=== PATIENT | male | born 1990 | race African-American/Black ===

== ENCOUNTER 2019-09-09 10:41 | Emergency (ER) | payer SELFPAY ==
--- NOTE | 2019-09-09 10:57 | ER Document Report ---
ED Medical Screen (RME) - General Chief Complaint: Abdominal Pain Stated Complaint: ABDOMINAL CRAMPING Time Seen by Provider: 09/09/19 10:52 Notes: Patient is a 29-year-old male who presents the emergency department with a chief complaint of abdominal pain. Patient states that his pain started about 2 months ago. Patient states that he ended up having some hematuria. States that last night he had some chills. Patient states that he is sexually active. Exam: Soft, mildly tender abdomen. Exam limited due to patient in sitting position in triage. I have greeted and performed a rapid initial assessment of this patient. A comprehensive ED assessment and evaluation of the patient, analysis of test results and completion of medical decision making process will be conducted by an additional ED providers. - Related Data Allergies/Adverse Reactions: No Known Allergies Allergy (Unverified 09/09/19 10:50) Past Medical History - Social History Frequency of alcohol use: Social Drug Abuse: None Physical Exam - Vital signs Vitals: Temp Pulse Resp BP Pulse Ox 98.9 F 94 18 150/68 H 100 09/09/19 10:45 09/09/19 10:45 09/09/19 10:45 09/09/19 10:45 09/09/19 10:45 Course - Vital Signs Vital signs: Temp Pulse Resp BP Pulse Ox 98.9 F 94 18 150/68 H 100 09/09/19 10:45 09/09/19 10:45 09/09/19 10:45 09/09/19 10:45 09/09/19 10:45
[2019-09-09 11:30] LABS: ABSOLUTE LYMPHOCYTES (AUTO) 1.1 10^3/uL (0.5-4.7); ABSOLUTE MONOCYTES (AUTO) 0.7 10^3/uL (0.1-1.4); ABSOLUTE NEUT (AUTO) 9.5 10^3/uL (1.7-8.2); BASOPHILS % (AUTO) 0.3 % (0-2); HEMATOCRIT 45.6 % (37.9-51.0); HEMOGLOBIN 14.5 g/dL (13.5-17.0); MEAN CORPUSCULAR HEMOGLOBIN 24.6 pg (27.0-33.4); MEAN CORPUSCULAR HGB CONC 31.9 g/dL (32.0-36.0); MEAN CORPUSCULAR VOLUME 77 fl (80-97); MONOCYTES % (AUTO) 6.3 % (3-13); PLATELET COUNT 334 10^3/uL (150-450); RED BLOOD COUNT 5.92 10^6/uL (4.35-5.55); RED CELL DISTRIBUTION WIDTH 14.7 % (11.5-14.0); SEGMENTED NEUTROPHILS % (AUTO) 83.4 % (42-78); TOTAL CELLS COUNTED % (AUTO) 100 %; WHITE BLOOD COUNT 11.3 10^3/uL (4.0-10.5)
[2019-09-09 11:47] LABS: ALBUMIN 4.6 g/dL (3.5-5.0); ALKALINE PHOSPHATASE 69 U/L (38-126); ANION GAP 6 (5-19); ASPARTATE AMINO TRANSFERASE 22 U/L (17-59); BILIRUBIN,TOTAL 0.7 mg/dL (0.2-1.3); BLOOD UREA NITROGEN 11 mg/dL (7-20); CALCIUM 9.9 mg/dL (8.4-10.2); CARBON DIOXIDE 28 mmol/L (22-30); CHLORIDE 102 mmol/L (98-107); GLUCOSE 134 mg/dL (75-110); POTASSIUM 4.1 mmol/L (3.6-5.0); TOTAL PROTEIN 7.8 g/dL (6.3-8.2)
[2019-09-09 11:57] LABS: APPEARANCE,URINE CLEAR; BILIRUBIN,URINE NEGATIVE (NEGATIVE); COLOR,URINE YELLOW; GLUCOSE, URINE NEGATIVE (NEGATIVE); KETONES,URINE 20 mg/dL (NEGATIVE); LEUKOCYTE ESTERASE,URINE TRACE (NEGATIVE); NITRITE,URINE NEGATIVE (NEGATIVE); PROTEIN,URINE 100 mg/dL (NEGATIVE); URINE SPECIFIC GRAVITY 1.028
[2019-09-09 13:25] LABS: CHLAM PCR DETECTED (NOT DETECT)
[2019-09-09] MEDS ORDERED: AZITHROMYCIN 250 MG TABLET PO ONE (13:50)
[2019-09-09] MEDS ORDERED: CEFTRIAXONE INJ 250 MG VIAL IM ONE (13:51)
[2019-09-09 13:56] VITALS: BP 116/80
--- NOTE | 2019-09-09 13:58 | ER Document Report ---
ED General - General Chief Complaint: Abdominal Pain Stated Complaint: ABDOMINAL CRAMPING Time Seen by Provider: 09/09/19 10:52 - HPI Notes: Patient is a 29-year-old male with no significant medical history who presents to the emergency department for evaluation of abdominal pain, lower back pain, blood in his urine. He states his symptoms have been ongoing for the last several months. He describes a cramping, sharp, stabbing abdominal pain. He states he is been hot and sweaty, had his occasional chills. No enoch fevers to his knowledge. He has had nausea but no emesis. He has been having normal bowel movements. He states that the last week he believed some Danish fries might have worsened his pain. He also noted that he has had blood in his urine for the past several weeks. He states he notices some difficulty more with the beginning of his urinary stream. He states at one point his "penis seemed clogged". He denies any penile discharge or sores to that area. He is sexually active, states he is in a monogamous relationship. - Related Data Allergies/Adverse Reactions: No Known Allergies Allergy (Unverified 09/09/19 10:50) Home Medications: None Past Medical History - General Information source: Patient - Social History Smoking Status: Current Every Day Smoker Frequency of alcohol use: Social Drug Abuse: Marijuana Family History: Malignancy Review of Systems - Review of Systems Gastrointestinal: See HPI Genitourinary: See HPI -: Yes All other systems reviewed and negative Physical Exam - Vital signs Vitals: Temp Pulse Resp BP Pulse Ox 98.9 F 94 18 150/68 H 100 09/09/19 10:45 09/09/19 10:45 09/09/19 10:45 09/09/19 10:45 09/09/19 10:45 - Notes Notes: Vital signs reviewed, please refer to chart. Head is normocephalic, atraumatic. Pupils equal round, reactive to light. Neck is supple without meningismus. Heart is regular rate and rhythm. Lungs are clear to auscultation bilaterally. Abdomen is soft, nontender, normoactive bowel sounds throughout. Extremities without cyanosis, clubbing. Posterior calves are nontender. Peripheral pulses are equal. Skin is warm and dry. Patient is awake, alert, neurological exam is nonfocal. Genital exam is performed with Chloe Meredith RN, present in the room. Patient is a circumcised male with normal Mike staging. Bilateral testicles are descended. No visible sores or urethral discharge. Intact cremasteric reflex. Course - Re-evaluation Re-evalutation: 09/09/19 13:54 Patient presents to the emergency department for evaluation. Laboratory investigations were ordered as through triage. Patient has a nonfocal abdominal exam. His laboratory investigations did reveal a urine positive for chlamydia. This was explained to the patient. He was told that he should use protection with sexual encounters. He was told that he should follow-up with primary care and consider further testing for STIs. He was told that he should notify his partner as well of this infection. He was ordered treatment with ceftriaxone and Zithromax. He is to follow-up with primary care, return to the emergency department with worsening or new concerning symptoms of any sort. - Vital Signs Vital signs: Temp Pulse Resp BP Pulse Ox 98.9 F 94 18 150/68 H 100 09/09/19 10:45 09/09/19 10:45 09/09/19 10:45 09/09/19 10:45 09/09/19 10:45 - Laboratory Result Diagrams: 09/09/19 11:08 09/09/19 11:08 Laboratory results interpreted by me: 09/09/19 09/09/19 09/09/19 11:08 11:08 11:24 WBC 11.3 H RBC 5.92 H MCV 77 L MCH 24.6 L MCHC 31.9 L RDW 14.7 H Lymph % (Auto) 10.0 L Absolute Neuts (auto) 9.5 H Seg Neutrophils % 83.4 H Sodium 136.3 L Glucose 134 H Urine Protein Urine Ketones Urine Blood Urine Urobilinogen Ur Leukocyte Esterase Chlamydia DNA (PCR) DETECTED H 09/09/19 11:24 WBC RBC MCV MCH MCHC RDW Lymph % (Auto) Absolute Neuts (auto) Seg Neutrophils % Sodium Glucose Urine Protein 100 H Urine Ketones 20 H Urine Blood SMALL H Urine Urobilinogen 4.0 H Ur Leukocyte Esterase TRACE H Chlamydia DNA (PCR) Discharge - Discharge Clinical Impression: Chlamydia, Generalized abdominal pain Condition: Stable Disposition: HOME, SELF-CARE Instructions: Abdominal Pain ([facility]), Chlamydia ([facility]) Additional Instructions: You have been treated with antibiotics for chlamydia, as well as a possible gonorrheal infection. Please notify your partner, who will likely retry her treatment, and avoid unprotected sex in the future. Follow-up with primary care next week. Return to the emergency department with worsening or new concerning symptoms of any sort.
[2019-09-09] MEDS ORDERED: LIDOCAINE 1% INJ (10 MG/ML) 10 ML MDV INJ ONE (14:00)
[2019-09-09] MEDS ORDERED: LIDOCAINE 1% INJ-PF (10 MG/ML) 30 ML SDV ONE (14:02)
== END 2019-09-09 14:16 | disposition home or self-care (01) ==
LOC: ER 10:41
DX: R10.84 Generalized abdominal pain (principal); A74.9 Chlamydial infection, unspecified; F17.200 Nicotine dependence, unspecified, uncomplicated
CPT/HCPCS: 99284; 96372; 36415; 83690; 85025; 80053; 81001; 87491; 87591; J0696